=== PATIENT | female | born 1950 | race Two or more races ===

== ENCOUNTER 2018-07-05 15:38 | Emergency (ER) | payer SELFPAY ==
[~2018-07-05] VITALS: Ht 165.1 cm; Wt 77.6 kg
[2018-07-05] MEDS ORDERED: IV NORMAL SALINE 1000ML BAG 1,000 ML IV ONE (16:00)
--- NOTE | 2018-07-05 16:06 | PHYS DOC ---
Past Medical History Past Medical History: COPD, Diabetes-Type II, GERD, High Cholesterol, Hypertension Past Surgical History: Tonsillectomy, Tubal ligation, Other Additional Past Surgical Histo: stent x4, left shoulder Alcohol Use: None Drug Use: None Adult General Chief Complaint Chief Complaint: RECTAL FOREIGN BODY HPI HPI Patient is a 67 year old female with history of COPD-on oxygen which she doesn't use, hypertension, high cholesterol, diabetes type 2, who presents to the ED today complaining of pulling a foreign object from her rectum. Patient states on she felt constipated. She states attempted to have a bowel movement. She states she felt there was hard stool on the lower end of the rectum, patient states when she tried to pull the stool she states she attempted to pull the stool out but felt it was a two feet tape worm which she flashed. She states she has hx of tape worms when she was a child. She states she's had intermittent mild diffuse abdominal pain since then. Denies any nausea vomiting. Denies any diarrhea Review of Systems Review of Systems Constitutional: Denies fever or chills [] Eyes: Denies change in visual acuity, redness, or eye pain [] HENT: Denies nasal congestion or sore throat [] Respiratory: Denies cough or shortness of breath [] Cardiovascular: No additional information not addressed in HPI [] GI: Reports removing something foreign from the rectum. Reports diffuse abdomi nal pain. Denies nausea, vomiting, bloody stools or diarrhea [] : Denies dysuria or hematuria [] Musculoskeletal: Denies back pain or joint pain [] Integument: Denies rash or skin lesions [] Neurologic: Denies headache, focal weakness or sensory changes [] All other systems were reviewed and found to be within normal limits, except as documented in this note. Current Medications Current Medications Current Medications Medications (Trade) Dose Ordered Sig/Janusz Start Time Stop Time Status Last Admin Dose Admin Famotidine (Pepcid Vial) 20 mg 1X ONCE 07/05/18 16:15 07/05/18 16:16 DC 07/05/18 16:22 20 MG Info (CONTRAST GIVEN -- Rx MONITORING) 1 each PRN DAILY PRN 07/05/18 17:15 07/07/18 17:14 Iohexol (Omnipaque 300 Mg/ml) 75 ml 1X ONCE 07/05/18 17:00 07/05/18 17:01 DC 07/05/18 17:27 75 ML Ketorolac Tromethamine (Toradol 30mg Vial) 30 mg 1X ONCE 07/05/18 16:15 07/05/18 16:16 DC 07/05/18 16:22 30 MG Sodium Chloride 1,000 ml @ 1,000 mls/hr 1X ONCE 07/05/18 16:00 07/05/18 16:59 DC 07/05/18 16:22 1,000 MLS/HR Allergies Allergies Allergies Coded Allergies Type Severity Reaction Last Updated Verified No Known Drug Allergies 01/06/14 No Physical Exam Physical Exam Constitutional: Well developed, well nourished, no acute distress, non-toxic appearance. [] HENT: Normocephalic, atraumatic, bilateral external ears normal, oropharynx moist, no oral exudates, nose normal. [] Eyes: PERRLA, EOMI, conjunctiva normal, no discharge. [] Neck: Normal range of motion, no tenderness, supple, no stridor. [] Cardiovascular:Heart rate regular rhythm, no murmur [] Lungs & Thorax: Bilateral breath sounds clear to auscultation [] Abdomen: Bowel sounds normal, soft, diffuse tenderness throughout the abdomen, no point tenderness to the right upper quadrant or right lower quadrant, no masses, no pulsatile masses. [] Rectal exam-external rectum with trace amount of hemorrhoids. No internal hemorrhoids. No masses noted on the internal rectal vault. No active bleeding. Skin: Warm, dry, no erythema, no rash. [] Back: No tenderness, no CVA tenderness. [] Extremities: No tenderness, no cyanosis, no clubbing, ROM intact, no edema. [] Neurologic: Alert and oriented X 3, normal motor function, normal sensory function, no focal deficits noted. [] Psychologic: Affect normal, judgement normal, mood normal. [] Current Patient Data Vital Signs Vital Signs Date Time Temp Pulse Resp B/P (MAP) Pulse Ox O2 Delivery O2 Flow Rate FiO2 07/05/18 18:15 73 16 155/72 (99) 91 Room Air 07/05/18 15:55 97.7 97.7 Lab Values Laboratory Tests Test 07/05/18 15:51 07/05/18 16:20 07/05/18 17:03 Stool Occult Blood Negative (NEG) White Blood Count 6.8 x10^3/uL (4.0-11.0) Red Blood Count 4.59 x10^6/uL (3.50-5.40) Hemoglobin 13.6 g/dL (12.0-15.5) Hematocrit 41.6 % (36.0-47.0) Mean Corpuscular Volume 91 fL (79-100) Mean Corpuscular Hemoglobin 30 pg (25-35) Mean Corpuscular Hemoglobin Concent 33 g/dL (31-37) Red Cell Distribution Width 14.6 % (11.5-14.5) H Platelet Count 347 x10^3/uL (140-400) Neutrophils (%) (Auto) 59 % (31-73) Lymphocytes (%) (Auto) 28 % (24-48) Monocytes (%) (Auto) 10 % (0-9) H Eosinophils (%) (Auto) 3 % (0-3) Basophils (%) (Auto) 1 % (0-3) Neutrophils # (Auto) 4.0 x10^3uL (1.8-7.7) Lymphocytes # (Auto) 1.9 x10^3/uL (1.0-4.8) Monocytes # (Auto) 0.7 x10^3/uL (0.0-1.1) Eosinophils # (Auto) 0.2 x10^3/uL (0.0-0.7) Basophils # (Auto) 0.1 x10^3/uL (0.0-0.2) Sodium Level 137 mmol/L (136-145) Potassium Level 4.8 mmol/L (3.5-5.1) Chloride Level 103 mmol/L (98-107) Carbon Dioxide Level 27 mmol/L (21-32) Anion Gap 7 (6-14) Blood Urea Nitrogen 17 mg/dL (7-20) Creatinine 0.9 mg/dL (0.6-1.0) Estimated GFR (Cockcroft-Gault) 62.1 BUN/Creatinine Ratio 19 (6-20) Glucose Level 146 mg/dL (70-99) H Calcium Level 9.4 mg/dL (8.5-10.1) Total Bilirubin 0.4 mg/dL (0.2-1.0) Aspartate Amino Transferase (AST) 30 U/L (15-37) Alanine Aminotransferase (ALT) 11 U/L (14-59) L Alkaline Phosphatase 70 U/L (46-116) Total Protein 8.2 g/dL (6.4-8.2) Albumin 2.9 g/dL (3.4-5.0) L Albumin/Globulin Ratio 0.5 (1.0-1.7) L Lipase 184 U/L (73-393) Urine Collection Type Unknown Urine Color Yellow Urine Clarity Clear Urine pH 5.0 Urine Specific [place] 1.025 Urine Protein Negative mg/dL (NEG-TRACE) Urine Glucose (UA) Negative mg/dL (NEG) Urine Ketones (Stick) Negative mg/dL (NEG) Urine Blood Negative (NEG) Urine Nitrite Negative (NEG) Urine Bilirubin Negative (NEG) Urine Urobilinogen Dipstick 0.2 mg/dL (0.2 mg/dL) Urine Leukocyte Esterase Moderate (NEG) Urine RBC 1-2 /HPF (0-2) Urine WBC 11-20 /HPF (0-4) Urine Squamous Epithelial Cells Few /LPF Urine Transitional Epithelial Cells Occ /LPF Urine Renal Epithelial Cells Occ /LPF Urine Bacteria 0 /HPF (0-FEW) Urine Hyaline Casts Many /HPF Urine Mucus Marked /LPF Laboratory Tests 07/05/18 16:20 Laboratory Tests 07/05/18 16:20 EKG EKG [] Radiology/Procedures Radiology/Procedures PROCEDURE: CT ABD PELV W/ IV CONTRST ONLY CT ABD PELV W/ IV CONTRST ONLY Indication: Rectal pain. Exposure: One or more of the following individualized dose reduction techniques were utilized for this examination: 1. Automated exposure control 2. Adjustment of the mA and/or kV according to patient size 3. Use of iterative reconstruction technique. Technique: Intravenous contrast was given. No oral contrast per request. Mild linear markings in both lung bases, compatible with fibrosis or atelectasis. Collection in the posteromedial right lung base, appears pleural-based. This measures greater than simple fluid, 30 Hounsfield units. This does demonstrate some pleural thickening at its wall, compatible with an empyema. Measures about 4.2 cm x 3.5 cm x 4.5 cm. Coronary artery calcifications. Liver is unremarkable. Spleen unremarkable. No peripancreatic fluid or inflammatory type changes seen. No adrenal mass. Kidneys demonstrate symmetric enhancement. No hydronephrosis. Small hypodense lesion lower pole left kidney measures less than 1 cm, too small to characterize but most likely a cyst. Gallbladder surgically absent. Aorta calcified, no evidence of aneurysm. Ectasia of the aorta measuring 2.5 cm diameter. No significant lymph node enlargement is identified. No significant small bowel dilatation. No evidence of acute colitis. There is mild diverticulosis. The appendix appears normal. There is mild stranding in the perirectal fat, but of questionable significance. No perirectal fluid collection is seen. No definite rectal wall thickening. No evidence of significant ascites or pneumoperitoneum. Urinary bladder demonstrates wall thickening but is not distended. Degenerative changes of the spine. Minimal anterior spondylolisthesis of L4 on L5. At least mild lumbar stenosis. No aggressive bone destruction. Degenerative changes at the skeletal pelvis. There are surgical clips in the right groin. IMPRESSION: 1. There is what appears to be loculated complex pleural fluid in the right lung base, most compatible with a small empyema. 2. No acute findings in the abdomen or pelvis. 3. Question mild perirectal soft tissue stranding can indicate inflammation. No perirectal fluid collection. Electronically signed by: Dl Mcknight MD (07/05/2018 5:57 PM) [facility] DICTATED and SIGNED BY: DL MCKNIGHT MD DATE: 07/05/181756 Course & Med Decision Making Course & Med Decision Making Pertinent Labs and Imaging studies reviewed. (See chart for details) This is a 67-year-old female patient presenting to the ED today concerned she could've removed a 2 feet tape worm from her rectum on which is 3 days ago. She was apparently constipated tried to have a bowel movement and felt something hard on her rectal opening, she tried to pull it out and she states it could have been a 2 feet tapeworm that she flushed. She states she has history of tapeworms when she was a child. CBC with normal WBC, CMP with no acute findings, urine analysis is noted for moderate amount of leukocytes-discharged on cephalexin. CT of the abdomen and pelvic was negative for any acute findings in the abdomen or pelvis. Patient noted for emphysema. Patient advised to follow-up with the PCP if she is concerned she could have tapeworms considering we don't know what type of tapeworms she could have and the treatment is based on the type of tapeworm. She states she has not had a tape either since she was a child. She was provided return precautions and discharged in stable condition. Eran Disclaimer Eran Disclaimer This electronic medical record was generated, in whole or in part, using a voice recognition dictation system. Departure Departure Impression: Primary Impression: UTI (urinary tract infection) Additional Impression: Abdominal pain Disposition: HOME, SELF-CARE Condition: STABLE Referrals: NON,STAFF (PCP) Follow-up with your doctor in 1-2 weeks Patient Instructions: Abdominal Pain (Nonspecific), Urinary Tract Infection Additional Instructions: You were evaluated in the emergency room, we highly recommend you follow-up with your primary care doctor in the course of next week. Your urine was noted for infection, we put you on cephalexin, ensure you complete them. Come back to the ED at any point you have concerning symptoms. Scripts Cephalexin (CEPHALEXIN) 500 Mg Tablet 1 TAB PO BID, #14 TAB Prov: LORETTA GUILLEN APRN 07/05/18 Problem Qualifiers Primary Impression: UTI (urinary tract infection) Urinary tract infection type: site unspecified Hematuria presence: without hematuria Qualified Codes: N39.0 - Urinary tract infection, site not specified Additional Impression: Abdominal pain Abdominal location: generalized Qualified Codes: R10.84 - Generalized abdominal pain LORETTA GUILLEN APRN July 05, 2018 16:05
[2018-07-05] MEDS ORDERED: FAMOTIDINE 20 MG/2 ML VIAL IVP ONE (16:15)
[2018-07-05] MEDS ORDERED: KETOROLAC 30 MG/ML VIAL. IV ONE (16:15)
[2018-07-05 16:25] LABS: FECAL OB PT NEGATIVE (NEG)
[2018-07-05 16:29] LABS: BASO # 0.1 x10^3/uL (0.0-0.2); BASO % 1 % (0-3); EOS # 0.2 x10^3/uL (0.0-0.7); EOS % 3 % (0-3); HEMATOCRIT 41.6 % (36.0-47.0); HEMOGLOBIN 13.6 g/dL (12.0-15.5); LYMPH # 1.9 x10^3/uL (1.0-4.8); LYMPH % 28 % (24-48); MEAN CORPUSCULAR HEMOGLOBIN 30 pg (25-35); MEAN CORPUSCULAR HGB CONC 33 g/dL (31-37); MEAN CORPUSCULAR VOLUME 91 fL (79-100); MONO # 0.7 x10^3/uL (0.0-1.1); MONO % 10 % (0-9); NEUT % 59 % (31-73); PLATELET COUNT 347 x10^3/uL (140-400); RED BLOOD COUNT 4.59 x10^6/uL (3.50-5.40); RED CELL DISTRIBUTION WIDTH 14.6 % (11.5-14.5); WHITE BLOOD COUNT 6.8 x10^3/uL (4.0-11.0)
[2018-07-05 16:45] LABS: ALBUMIN 2.9 g/dL (3.4-5.0); ALBUMIN/GLOBULIN RATIO 0.5 (1.0-1.7); CALCIUM 9.4 mg/dL (8.5-10.1); CREATININE 0.9 mg/dL (0.6-1.0); GFR 62.1; POTASSIUM 4.8 mmol/L (3.5-5.1); TOTAL BILIRUBIN 0.4 mg/dL (0.2-1.0); TOTAL PROTEIN 8.2 g/dL (6.4-8.2)
[2018-07-05] MEDS ORDERED: IOHEXOL 300 MG/ML 100ML VIAL. IV ONE (17:00)
[2018-07-05] MEDS ORDERED: CONTRAST GIVEN. MC PRN (17:15)
[2018-07-05 17:17] LABS: BILIRUBIN,URINE NEGATIVE (NEG); CLARITY,URINE CLEAR; COLOR,URINE YELLOW; NITRITE,URINE NEGATIVE (NEG); PROTEIN,URINE NEGATIVE (NEG-TRACE); UROBILINOGEN,URINE 0.2 mg/dL (0.2 mg/dL)
[2018-07-05 17:41] LABS: HYALINE CASTS, URINE MANY /HPF; SQUAMOUS EPITHELIAL CELL,UR FEW /LPF
[2018-07-05 17:42] LABS: BACTERIA,URINE 0 /HPF (0-FEW)
--- NOTE | 2018-07-05 18:00 | RAD ---
CT ABD PELV W/ IV CONTRST ONLY Indication: Rectal pain. Exposure: One or more of the following individualized dose reduction techniques were utilized for this examination: 1. Automated exposure control 2. Adjustment of the mA and/or kV according to patient size 3. Use of iterative reconstruction technique. Technique: Intravenous contrast was given. No oral contrast per request. Mild linear markings in both lung bases, compatible with fibrosis or atelectasis. Collection in the posteromedial right lung base, appears pleural-based. This measures greater than simple fluid, 30 Hounsfield units. This does demonstrate some pleural thickening at its wall, compatible with an empyema. Measures about 4.2 cm x 3.5 cm x 4.5 cm. Coronary artery calcifications. Liver is unremarkable. Spleen unremarkable. No peripancreatic fluid or inflammatory type changes seen. No adrenal mass. Kidneys demonstrate symmetric enhancement. No hydronephrosis. Small hypodense lesion lower pole left kidney measures less than 1 cm, too small to characterize but most likely a cyst. Gallbladder surgically absent. Aorta calcified, no evidence of aneurysm. Ectasia of the aorta measuring 2.5 cm diameter. No significant lymph node enlargement is identified. No significant small bowel dilatation. No evidence of acute colitis. There is mild diverticulosis. The appendix appears normal. There is mild stranding in the perirectal fat, but of questionable significance. No perirectal fluid collection is seen. No definite rectal wall thickening. No evidence of significant ascites or pneumoperitoneum. Urinary bladder demonstrates wall thickening but is not distended. Degenerative changes of the spine. Minimal anterior spondylolisthesis of L4 on L5. At least mild lumbar stenosis. No aggressive bone destruction. Degenerative changes at the skeletal pelvis. There are surgical clips in the right groin. IMPRESSION: 1. There is what appears to be loculated complex pleural fluid in the right lung base, most compatible with a small empyema. 2. No acute findings in the abdomen or pelvis. 3. Question mild perirectal soft tissue stranding can indicate inflammation. No perirectal fluid collection. Electronically signed by: Dl Mcknight MD (07/05/2018 5:57 PM) [facility]
[2018-07-05 18:15] VITALS: BP 155/72
[2018-07-05] MEDS ORDERED: CEPH500T PO (18:34)
== END 2018-07-05 18:42 | disposition home or self-care (01) ==
LOC: ER 15:38
DX: N39.0 Urinary tract infection, site not specified (principal); R10.84 Generalized abdominal pain; K64.9 Unspecified hemorrhoids; J44.9 Chronic obstructive pulmonary disease, unspecified; E11.9 Type 2 diabetes mellitus without complications; K21.9 Gastro-esophageal reflux disease without esophagitis; E78.00 Pure hypercholesterolemia, unspecified; I10 Essential (primary) hypertension; Z90.89 Acquired absence of other organs; Z98.51 Tubal ligation status
CPT/HCPCS: 36415; 74177; 80053; 81001; 82274; 83690; 85025; 96374; 96375; 99285; J1885; J3490; J7030; Q9967